=== PATIENT | female | born 1980 | race African-American/Black ===

== ENCOUNTER 2019-11-30 08:12 | Emergency (ER) | payer OTHER ==
[2019-11-30 08:24] VITALS: BP 98/56; PULSE 76; TEMP 98.9; BMI 31.6
[2019-11-30] MEDS ORDERED: KETOROLAC TROMETHAMINE 60 MG/2 ML VIAL IM ONE (08:47)
[2019-11-30] MEDS ORDERED: KETOROLAC TROMETHAMINE 60 MG/2 ML VIAL ONE (08:48)
--- NOTE | 2019-11-30 09:12 | PDOC ---
History of Present Illness - General Chief Complaint: Pain, Acute Stated Complaint: LT. KNEE PAIN Time Seen by Provider: 11/30/19 08:33 History Source: Patient Exam Limitations: Clinical Condition - History of Present Illness Initial Comments: 11/30/19 09:07 Patient with history of left knee arthritis and ACL and PCL partial tear on MRI from August last year presented with complaint of sudden onset of swelling to anterior left patella with worsening pain to left knee since yesterday. Patient denies any new trauma or injury to left knee. Patient reported pain started suddenly. Patient report taking Motrin yesterday for pain but has not taken anything today for pain. Denies calf muscle pain, upper thigh pain or popliteal pain. Patient reported pain is localized anterior left knee. Denies any other symptoms Is this a multiple visit Asthma Patient?: No Timing/Duration: 24 hours Past History - Past Medical History Allergies/Adverse Reactions: Allergies Allergy/AdvReac Type Severity Reaction Status Date / Time No Known Allergies Allergy Verified 06/09/16 17:25 Home Medications: Ambulatory Orders Diclofenac Sodium [Voltaren] 1 applic TP Q8H PRN #1 tube 11/30/19 Ketorolac Tromethamine [Toradol] 10 mg PO TID PRN #21 tablet 11/30/19 COPD: No - Immunization History TDAP Vaccination: No Immunization Up to Date: No - Psycho Social/Smoking Cessation Hx Smoking Status: No Smoking History: Never smoked Have you smoked in the past 12 months: No Number of Cigarettes Smoked Daily: 0 Information on smoking cessation initiated: No Hx Alcohol Use: No Drug/Substance Use Hx: No Substance Use Type: None Review of Systems - Review of Systems Able to Perform ROS?: Yes Is the patient limited Setswana proficient: No Constitutional: No: Fever, Malaise HEENTM: No: Symptoms Reported, See HPI, Eye Pain, Blurred Vision, Tearing, Recent change in vision, Double Vision, Cataracts, Ear Pain, Ocular Prothesis, Ear Discharge, Nose Pain, Nose Congestion, Tinnitus, Nose Bleeding, Hearing Loss , Throat Pain, Throat Swelling, Mouth Pain, Dental Problems, Difficulty Swallowing, Mouth Swelling, Other Respiratory: No: Symptoms reported, See HPI, Cough, Orthopnea, Shortness of Breath, SOB with Exertion, SOB at Rest, Stridor, Wheezing, Productive cough, Hemoptysis, Other Cardiac (ROS): No: Symptoms Reported, See HPI, Chest Pain, Edema, Irregular Heart Rate, Lightheadedness, Palpitations, Syncope, Chest Tightness, Other Musculoskeletal: Yes: Symptoms Reported, See HPI, Joint Pain (left knee), Joint Swelling (left knee), Muscle Pain (anterior left knee pain) Integumentary: Yes: Symptoms Reported, See HPI, Other (swelling to left knee). No: Bruising, Change in Color Neurological: No: Symptoms reported, Numbness, Paresthesia, Tingling All Other Systems: Reviewed and Negative *Physical Exam - Vital Signs Last Vital Signs Temp Pulse Resp BP Pulse Ox 98.9 F 76 18 98/56 L 97 11/30/19 08:19 11/30/19 08:19 11/30/19 08:19 11/30/19 08:19 11/30/19 08:19 - Physical Exam 11/30/19 09:11 GENERAL: Well developed, well nourished. Awake and alert in moderate acute distress. PULMONARY: No evidence of respiratory distress. MUSCULOSKELETAL : Moderate tenderness to anterior patella of left knee with moderate joint effusion to left knee. No tenderness to left calf muscle upper thigh muscle of left leg. Negative Homans sign. No joint laxity to left knee SKIN: Warm and dry. Normal capillary refill. Moderate swelling to anterior patella of left knee. No skin erythema or ecchymosis NEUROLOGICAL: Alert, awake, appropriate. No motor deficits in the lower extremities. PSYCHIATRIC: Cooperative. Good eye contact. Appropriate mood and affect. General Appearance: Yes: Nourished, Appropriately Dressed, Apparent Distress, Moderate Distress ED Treatment Course - RADIOLOGY Radiology Studies Ordered: Category Date Time Status KNEE 3 POS-LEFT [RAD] Stat Radiology 11/30/19 08:48 Ordered - Medications Given in the ED: ED Medications Discontinued Medications Generic Name Dose Route Start Last Admin Trade Name Freq PRN Reason Stop Dose Admin Ketorolac Tromethamine 60 mg 11/30/19 08:47 11/30/19 08:49 Toradol Injection - IM 11/30/19 08:48 60 mg ONCE ONE Administration Medical Decision Making - Medical Decision Making 11/30/19 09:08 Patient with history of left knee arthritis and ACL and PCL partial tear on MRI from August last year presented with complaint of sudden onset of swelling to anterior left patella with worsening pain to left knee since yesterday. Patient denies any new trauma or injury to left knee. Patient reported pain started suddenly. Patient report taking Motrin yesterday for pain but has not taken anything today for pain. Denies calf muscle pain, upper thigh pain or popliteal pain. Patient reported pain is localized anterior left knee. Denies any other symptoms Exam significant for moderate swelling to left patella with moderate tenderness over anterior patellar of left knee with joint effusion. No tenderness to left calf muscle or lower leg. No tenderness to upper thigh muscle of left leg. No erythema to skin. Patient symptoms likely joint effusion for worsening arthritis or meniscus injury. X-ray of left knee ordered to rule out acute abnormality. Toradol 60 mg IM ordered for pain 11/30/19 10:08 X-ray of left knee shows no acute abnormality. Patient reported receiving cortisone shot from her orthopedics 4 days ago for knee pain. Patient advised to follow back with orthopedic. Left knee immobilizer applied to left knee and patient given crutches to help with ambulation. Rx for Toradol and Voltaren gel sent as needed for pain onset 3 days follow-up Discharge - Discharge Information Problems reviewed: Yes Clinical Impression/Diagnosis: Left anterior knee pain Condition: Stable Disposition: HOME - Admission No - Additional Discharge Information Prescriptions: Diclofenac Sodium [Voltaren] 1 applic TP Q8H PRN #1 tube PRN Reason: knee pain Ketorolac Tromethamine [Toradol] 10 mg PO TID PRN #21 tablet PRN Reason: knee pain - Follow up/Referral - Patient Discharge Instructions Patient Printed Discharge Instructions: DI for Knee Effusion Additional Instructions: Your knee x-ray shows mild arthritis otherwise with no acute abnormality. Take prescribed medication as needed for pain and apply heat to knee 2-3 times a day as needed for swelling. Keep left leg elevated to help with swelling. Follow- up back with your orthopedics - Post Discharge Activity
== END 2019-11-30 10:13 | disposition home or self-care (01) ==
LOC: JERFT 08:12
PROC: 3E0233Z Introduction of Anti-inflammatory into Muscle, Percutaneous Approach (ICD-10-PCS; principal; 2019-11-30)
PROC: 2W3RXYZ Immobilization of Left Lower Leg using Other Device (ICD-10-PCS; 2019-11-30)
DX: M13.862 Other specified arthritis, left knee (principal)
CPT/HCPCS: 73562-TC-LT-FY; 99284-25